=== PATIENT | female | born 1965 | race Native Hawaiian/Other Pacific Islander ===

== ENCOUNTER 2019-01-05 12:22 | Emergency (ER) | payer BC ==
[~2019-01-05] VITALS: Ht 162.6 cm; Wt 124.7 kg
[2019-01-05 12:42] VITALS: TEMP 97.7
[2019-01-05 13:30] LABS: PLATELET COUNT 294 K/uL (152-353)
[2019-01-05 13:52] LABS: POTASSIUM 5.7 mmol/L (3.6-5.2); SODIUM 142 mmol/L (136-145)
[2019-01-05 15:58] VITALS: BP 179/53
== END 2019-01-05 16:00 | disposition home or self-care (01) ==
LOC: ED 12:22
PROVIDERS: Family Medicine
DX: R42 Dizziness and giddiness (principal); R60.9 Edema, unspecified; E87.5 Hyperkalemia; R11.10 Vomiting, unspecified; I10 Essential (primary) hypertension; N18.4 Chronic kidney disease, stage 4 (severe)
CPT/HCPCS: 74022; 80053; 82150; 82550; 82553; 83690; 83880; 84443; 84484; 85027; 93005; 96361; 96374; 99284; J2405

== ENCOUNTER 2019-01-23 12:35 | Outpatient (CLI) | payer BC ==
[~2019-01-23] VITALS: Ht 162.6 cm; Wt 124.7 kg
[2019-01-23 12:42] VITALS: BP 167/70; TEMP 99.1
== END 2019-01-23 23:18 | disposition home or self-care (01) ==
LOC: INF 12:35
DX: N18.4 Chronic kidney disease, stage 4 (severe) (principal); D63.1 Anemia in chronic kidney disease
CPT/HCPCS: 96365; Q0138

== ENCOUNTER 2019-07-25 12:41 | Outpatient (CLI) | payer BC ==
[~2019-07-25] VITALS: Ht 162.6 cm; Wt 124.7 kg
[2019-07-25 13:08] VITALS: BP 135/60; TEMP 98
== END 2019-07-25 14:00 | disposition home or self-care (01) ==
LOC: INF 12:41
DX: N18.5 Chronic kidney disease, stage 5 (principal); D63.1 Anemia in chronic kidney disease
CPT/HCPCS: 96365; Q0138

== ENCOUNTER 2019-08-02 12:34 | Outpatient (CLI) | payer BC ==
[~2019-08-02] VITALS: Ht 162.6 cm; Wt 127.0 kg
[2019-08-02 12:41] VITALS: BP 149/44; TEMP 97.7
[2019-08-02 13:43] VITALS: BP 155/56; TEMP 98
== END 2019-08-02 13:55 | disposition home or self-care (01) ==
LOC: INF 12:34
DX: N18.9 Chronic kidney disease, unspecified (principal); D64.9 Anemia, unspecified
CPT/HCPCS: 96365; Q0138

== ENCOUNTER 2021-03-31 14:21 | Outpatient (CLI) | payer OTHER, BC | END 2021-03-31 22:19 | disposition home or self-care (01) | LOC: RAD 14:21 | PROVIDERS: ATTEND Internal Medicine | DX: Z01.810 Encounter for preprocedural cardiovascular examination (principal) ==

== ENCOUNTER 2021-10-12 16:19 | Outpatient (CLI) | payer BC, OTHER | END 2021-10-12 19:04 | disposition home or self-care (01) | LOC: LABW 16:19 | PROVIDERS: ATTEND Nurse Practitioner Family | DX: N18.6 End stage renal disease (principal) | CPT/HCPCS: 36415; 84132 ==

== ENCOUNTER 2021-10-28 12:56 | Outpatient (CLI) | payer BC, OTHER | END 2021-10-28 21:24 | disposition home or self-care (01) | LOC: LAB 12:56 | PROVIDERS: ATTEND Internal Medicine | DX: Z92.29 Personal history of other drug therapy (principal) | CPT/HCPCS: 36415; 84132 ==